=== PATIENT | male | born 1950 | race Caucasian/White ===

== ENCOUNTER → 2018-09-23 | Day surgery (SDC) | payer MEDICARE, BC ==
[~2018-09-23] MED LIST: ALLOPURINOL300 MG PO; CLONIDINE HCL0.1 MG PO; EDARBYCLOR 40-1 EACH PO; FENTANYL CITRATE/PF 100MCG/2 ML INJ ONE; MIDAZOLAM HCL 2 MG/2 ML VIAL ONE; PANTOPRAZOLE SO40 MG PO; PROPOFOL IV EMULSION 10 MG/ML 50 ML VIAL ONE; RANITIDINE HCL150 MG PO
[2018-09-23 10:05] VITALS: BP 110/84
== END | disposition home or self-care (01) ==
LOC: OR 06:36
PROVIDERS: ATTEND Internal Medicine Gastroenterology
DX: Z12.11 Encounter for screening for malignant neoplasm of colon (principal); D12.0 Benign neoplasm of cecum; D12.2 Benign neoplasm of ascending colon; D12.3 Benign neoplasm of transverse colon; D12.4 Benign neoplasm of descending colon; D12.5 Benign neoplasm of sigmoid colon; D12.8 Benign neoplasm of rectum; K31.7 Polyp of stomach and duodenum; K52.9 Noninfective gastroenteritis and colitis, unspecified; K29.70 Gastritis, unspecified, without bleeding; K22.70 Barrett's esophagus without dysplasia; K44.9 Diaphragmatic hernia without obstruction or gangrene; K31.89 Other diseases of stomach and duodenum; K21.9 Gastro-esophageal reflux disease without esophagitis; K20.9 Esophagitis, unspecified; K57.30 Diverticulosis of large intestine without perforation or abscess without bleeding; K64.0 First degree hemorrhoids; K64.4 Residual hemorrhoidal skin tags; K62.89 Other specified diseases of anus and rectum; Z71.3 Dietary counseling and surveillance; F45.8 Other somatoform disorders; R05 Cough; E66.3 Overweight; I10 Essential (primary) hypertension; Z68.27 Body mass index [BMI] 27.0-27.9, adult; Z85.46 Personal history of malignant neoplasm of prostate; Z90.49 Acquired absence of other specified parts of digestive tract
CPT/HCPCS: 43239; 45380; 45385; 88305; 88312; 88342; 93005; J2250; J2704; 45384

== ENCOUNTER 2018-10-16 07:33 | Observation (INO) | payer MEDICARE, BC ==
[~2018-10-16] VITALS: Ht 175.3 cm; Wt 86.4 kg
[~2018-10-16 07:33] MED LIST changes: -FENTANYL CITRATE/PF 100MCG/2 ML INJ ONE; -MIDAZOLAM HCL 2 MG/2 ML VIAL ONE; -PROPOFOL IV EMULSION 10 MG/ML 50 ML VIAL ONE
[2018-10-16 09:25] LABS: BASOPHILS # (AUTO) 0.1 (0.0-0.1); BASOPHILS % 0.5 % (0.0-1.0); EOSINOPHILS # (AUTO) 0.1 (0.0-0.4); EOSINOPHILS % 0.6 % (0.0-6.0); HEMATOCRIT 44.3 % (38.2-49.6); HEMOGLOBIN 14.6 g/dL (14.0-18.0); LYMPHOCYTES # (AUTO) 2.3 (1.0-3.2); LYMPHOCYTES % 16.6 % (18.0-39.1); MEAN CORPUSCULAR HEMOGLOBIN 32.7 pg (28-32); MEAN CORPUSCULAR VOLUME 99.1 fL (81-99); MONOCYTES # (AUTO) 1.7 (0.2-0.8); MONOCYTES % 12.8 % (4.4-11.3); NEUTROPHILS # (AUTO) 9.3 (2.1-6.9); NEUTROPHILS % 68.8 % (38.7-80.0); PLATELET COUNT 207 x10e3/uL (140-360); RED BLOOD COUNT 4.47 x10e6/uL (4.3-5.7); RED CELL DISTRIBUTION WIDTH 13.3 % (11.7-14.4)
[2018-10-16 09:32] LABS: INR 0.95; PROTHROMBIN TIME 13.2 seconds (11.9-14.5)
[2018-10-16 09:33] LABS: PARTIAL THROMBOPLASTIN TIME 30.3 seconds (23.8-35.5)
[2018-10-16 09:41] LABS: ANION GAP 13.9 mmol/L (8-16); CALCIUM 10.6 mg/dL (8.4-10.2); CREATININE, SERUM 1.26 mg/dL (0.72-1.25); POTASSIUM 3.9 mmol/L (3.5-5.1)
[2018-10-16] MEDS ORDERED: LORAZEPAM 1 MG TAB PO NR (10:30)
[2018-10-16] MEDS ORDERED: LORAZEPAM 0.5 MG TAB PO PRN (12:00)
[2018-10-16] MEDS ORDERED: ONDANSETRON HCL INJ 2MG/ML 2ML 2 MG/ML VIAL IV PRN (12:00)
[2018-10-16] MEDS ORDERED: MORPHINE SULFATE 2 MG/ML SYR 1ML IV PRN (12:00)
[2018-10-16] MEDS ORDERED: LORAZEPAM 1 MG TAB PO PRN (12:15)
[2018-10-16] MEDS: SODIUM CHLORIDE 0.9% 1000ML 1,000 ML IV SCH (12:40)
[2018-10-16] MEDS: MORPHINE SULFATE INJ 4 MG/ML INJ 1ML IV PRN ×2 (12:40→16:55)
[2018-10-16] MEDS: ENOXAPARIN SODIUM INJ 100 MG/ML SYR SC SCH (12:40)
[2018-10-16 16:48] VITALS: BP 116/78
[2018-10-16 17:30] VITALS: BP 116/78
--- NOTE | 2018-10-16 19:17 | NUR ---
Got report from previous nurse. CALL LIGHT WITHIN REACH. PATIENT IN BED
[2018-10-16 20:56] VITALS: BP 120/66
[2018-10-17] VITALS (8 sets, daily range): BP systolic 111–143; BP diastolic 65–86
[2018-10-17] MEDS: ENOXAPARIN SODIUM INJ 100 MG/ML SYR SC SCH (00:45)
[2018-10-17] MEDS: SODIUM CHLORIDE 0.9% 1000ML 1,000 ML IV SCH ×4 (00:49→23:15)
[2018-10-17 05:33] LABS: BASOPHILS # (AUTO) 0.1 (0.0-0.1); BASOPHILS % 0.4 % (0.0-1.0); EOSINOPHILS % 0.2 % (0.0-6.0); HEMOGLOBIN 14.4 g/dL (14.0-18.0); LYMPHOCYTES # (AUTO) 2.3 (1.0-3.2); LYMPHOCYTES % 14.3 % (18.0-39.1); MEAN CORPUSCULAR HEMOGLOBIN 33.1 pg (28-32); MEAN CORPUSCULAR HGB CONC 33.5 g/dL (31-35); MEAN CORPUSCULAR VOLUME 98.9 fL (81-99); MONOCYTES # (AUTO) 2.1 (0.2-0.8); NEUTROPHILS # (AUTO) 11.4 (2.1-6.9); NEUTROPHILS % 71.2 % (38.7-80.0); PLATELET COUNT 202 x10e3/uL (140-360); RED BLOOD COUNT 4.35 x10e6/uL (4.3-5.7); RED CELL DISTRIBUTION WIDTH 13.3 % (11.7-14.4)
[2018-10-17 05:56] LABS: ANION GAP 15.2 mmol/L (8-16); CALCIUM 10.1 mg/dL (8.4-10.2); CREATININE, SERUM 1.21 mg/dL (0.72-1.25); POTASSIUM 4.2 mmol/L (3.5-5.1)
--- NOTE | 2018-10-17 07:43 | NUR ---
Gave report to oncoming nurse. call light within reach. patient in bed.
--- NOTE | 2018-10-17 08:26 | Diagnostic Imaging Report ---
EXAM: CT Abdomen and Pelvis WITH contrast INDICATION: ^DVT ELEVATED WBC RULE OUT AND MALIGNANCY CAN USE ORAL CONTR COMPARISON: None. TECHNIQUE: Abdomen and pelvis were scanned utilizing a multidetector helical scanner from the lung base to the pubic symphysis after administration of IV contrast. Coronal and sagittal reformations were obtained. Routine protocol was performed. Scan was performed when during portal venous phase. IV CONTRAST: 100 mL of Isovue 370 ORAL CONTRAST: Water COMPLICATIONS: None RADIATION DOSE: Total DLP: 621.87 mGy*cm Estimated effective dose: (DLP x 0.015 x size factor) mSv CTDIvol has been reviewed. It is below the limits set by the Radiation Protocol Committee (RPC). Dose modulation, iterative reconstruction, and/or weight based adjustment of the mA/kV was utilized to reduce the radiation dose to as low as reasonably achievable. FINDINGS: LINES and TUBES: None. LOWER THORAX: Unremarkable HEPATOBILIARY: The liver is diffuse hypodense compared to the spleen, consistent with diffuse hepatic diffuse hepatic steatosis. No focal hepatic lesions. No biliary ductal dilation. GALLBLADDER: There are cholecystectomy clips. SPLEEN: No splenomegaly. PANCREAS: No focal masses or ductal dilatation. ADRENALS: No adrenal nodules KIDNEYS/URETERS: Kidneys enhance symmetrically. No hydronephrosis. 3.0 cm cyst in inferior pole of the left kidney. No stones. GI TRACT: No abnormal distention, wall thickening, or evidence of bowel obstruction. There are diverticula within the colon without evidence of diverticulitis. Appendix is normal. PELVIC ORGANS/BLADDER: Prostate is not visualized. Pelvic floor prolapse. LYMPH NODES: No lymphadenopathy. Small rona hepatis lymph nodes. VESSELS: There is moderate atherosclerotic disease in the aorta and major arterial branches. PERITONEUM / RETROPERITONEUM: No free air or fluid. BONES: There are degenerative changes in the lumbar spine. Moderate disc space narrowing at L5-S1. Calcification of the left hip joint capsule. SOFT TISSUES: Subtle fat stranding the left groin in the approximate area of the left femoral artery and near the origin of the deep femoral artery. IMPRESSION: 1. Diffuse hepatic steatosis. 2. Pelvic floor prolapse with prostate absent. 3. No acute abnormalities in the abdomen or pelvis. 4. Subtle inflammatory changes in the left groin/proximal left femur with mild inflammatory changes around the left femoral artery and deep femoral artery. Correlate for left lower extremity infection. Signed by: Dr. Christopher Sutherland M.D. on 10/17/2018 8:23 AM
[2018-10-17] MEDS: CLONIDINE HCL 0.2 MG TAB PO SCH (10:53)
[2018-10-17] MEDS: ALLOPURINOL 300 MG TAB PO SCH (10:53)
[2018-10-17] MEDS: PANTOPRAZOLE SOD 40 MG TABEC PO SCH (10:53)
[2018-10-17] MEDS: APIXABAN 5 MG TABLET PO SCH ×2 (10:53→18:04)
[2018-10-17] MEDS ORDERED: SODIUM CHLORIDE 0.9% 50ML 50 ML ONE (17:18)
[2018-10-17] MEDS ORDERED: IOPAMIDOL 370 MG/ML 200 ML INFUS..BTL INJ ONE (17:18)
--- NOTE | 2018-10-17 19:05 | NUR ---
Got report from previous nurse. Call light within reach. Patient in bed.
[2018-10-18] VITALS (8 sets, daily range): BP systolic 102–123; BP diastolic 63–83
--- NOTE | 2018-10-18 07:15 | NUR ---
Gave report to oncoming nurse. Call light within reach. Patient in bed.
[2018-10-18] MEDS: PANTOPRAZOLE SOD 40 MG TABEC PO SCH (11:31)
[2018-10-18] MEDS: CLONIDINE HCL 0.2 MG TAB PO SCH (11:31)
[2018-10-18] MEDS: APIXABAN 5 MG TABLET PO SCH ×3 (11:31→17:33)
[2018-10-18] MEDS: ALLOPURINOL 300 MG TAB PO SCH (11:31)
[2018-10-18] MEDS: SODIUM CHLORIDE 0.9% 1000ML 1,000 ML IV SCH ×2 (14:16→23:00)
[2018-10-18] MEDS ORDERED: ONDANSETRON HCL 4 MG ORAL DISINTEGRATING TAB PO PRN (15:00)
--- NOTE | 2018-10-18 18:56 | NUR ---
Got report from previous nurse. Call light within reach. Patient in bed.
[2018-10-19] VITALS: BP 105/67
[2018-10-19 04:23] VITALS: BP 115/66
--- NOTE | 2018-10-19 07:06 | NUR ---
Patient in bed asleep. Call light within reach. Gave report to oncoming nurse.
--- NOTE | 2018-10-19 07:36 | Discharge Summary ---
DISCHARGE DIAGNOSIS: Left lower extremity DVT. HISTORY OF PRESENT ILLNESS: The patient is a gentleman, who presented with acute onset of left lower extremity pain in the morning of admission. We brought him to the emergency room, which does have left lower extremity DVT. He was brought and placed on initially Lovenox and Eliquis, which he tolerated very well. He had CT scan of his abdomen and pelvis just to rule out any occult malignancy, which was negative other than fatty liver, which I discussed with the patient. He had no complications with medication had his fill the medication prior to discharge, which he was able to obtain. He will be discharged home on Eliquis and follow up with me in two weeks. Please see hospital chart for full details. MD TOMER Drake/CARLOS /[id number]
[2018-10-19 07:42] VITALS: BP 115/75
[2018-10-19] MEDS: APIXABAN 5 MG TABLET PO SCH (07:42)
[2018-10-19] MEDS: PANTOPRAZOLE SOD 40 MG TABEC PO SCH (07:42)
[2018-10-19] MEDS: CLONIDINE HCL 0.2 MG TAB PO SCH (07:42)
[2018-10-19] MEDS: ALLOPURINOL 300 MG TAB PO SCH (07:42)
[2018-10-19 07:53] VITALS: BP 115/75
--- NOTE | 2018-10-19 08:15 | NUR ---
PIV removed with tip intact, no active bleeding noted, dressing in place. explained d/c instructions to patient and . all personal belongings, and d/c instructions in hand at time of discharge. patient reports provided RX for Eliquis and states " has it." teaching provided on side effects of eliquis and stressed if uncontrolled bleeding occurs to apply pressure and visit ER. escorted to front lobby door where picked up in private auto.
== END 2018-10-19 08:15 | disposition home or self-care (01) ==
LOC: ER 07:33 → ERHOLD 11:54 → IMCU 16:25
PROVIDERS: ADMIT Internal Medicine; ATTEND Internal Medicine
DX: I82.412 Acute embolism and thrombosis of left femoral vein (principal); I82.432 Acute embolism and thrombosis of left popliteal vein; I82.442 Acute embolism and thrombosis of left tibial vein; Z85.46 Personal history of malignant neoplasm of prostate; K21.9 Gastro-esophageal reflux disease without esophagitis; I12.9 Hypertensive chronic kidney disease with stage 1 through stage 4 chronic kidney disease, or unspecified chronic kidney disease; N18.3 Chronic kidney disease, stage 3 (moderate); M10.9 Gout, unspecified; Z82.49 Family history of ischemic heart disease and other diseases of the circulatory system; K76.0 Fatty (change of) liver, not elsewhere classified; D72.829 Elevated white blood cell count, unspecified
CPT/HCPCS: 36415 ×2; 74177; 80048 ×2; 85025 ×2; 85379; 85610; 85730; 93005; 93971; 99284; G0378 ×4; J1650 ×2; J2270; J2405; J7030 ×3; Q9967; S0164 ×3

== ENCOUNTER 2018-10-25 17:44 | Inpatient (IN) | payer MEDICARE, BC ==
[~2018-10-25] VITALS: Ht 175.3 cm; Wt 108.9 kg
--- OUTSIDE RECORDS SUMMARY | 2018-10-25 17:47 | XMS REPORT ---
[facility] Address Unknown Phone Unavailable Care Team Providers Care Pharmaceutical Detailer Name Role Phone JULIAN CRUZ Unavailable Unavailable Problems This patient has no known problems. Allergies, Adverse Reactions, Alerts This patient has no known allergies or adverse reactions. Medications This patient has no known medications. Results Test Description Test Time Test Comments Text Results Atomic Results Result Comments CT ABDOMEN/PELVIS W 2018-10-17 08:12:00 [place] [address] Patient Name: RASHID WATERMAN JR MR #: [id number] : 1950 Age/Sex: 67/M Req #: [id number] [facility] Physician: JULIAN CRUZ MD Ordered by: JULIAN CRUZ MD Report #: [id number] Location: [facility] Room/Bed: [place] [address] Procedure: [id number] CT/CT ABDOMEN/PELVIS W Exam Date: 10/17/18 Exam Time: 0800 REPORT STATUS: Signed EXAM: CT Abdomen and Pelvis WITH contrast INDICATI ON: DVT ELEVATED WBC RULE OUT AND MALIGNANCY CAN USE ORAL CONTR COMPARISON: None. TECHNIQUE: Abdomen and pelvis were scanned utilizing a multidetector helical scanner from the lung base to the pubic symphysis after administration of IV contrast. Coronal and sagittal reformations were obtained. Routine protocol was performed. Scan was performed when during portal venous phase. IV CONTRAST: 100 mL of Isovue 370 ORAL CONTRAST: Water COMPLICATIONS: None RADIATION DOSE: Total DLP: 621.87 mGy*cm Estimated effective dose: (DLP x 0.015 x size factor) mSv CTDIvol has been reviewed. It is below the limits set by the Radiation Protocol Committee (RPC). Dose modulation, iterative reconstruction, and/or weight based adjustment of the mA/kV was utilized to reduce the radiation dose to as low as reasonably achievable. FINDINGS: LINES and TUBES: None. LOWER THORAX: Unremarkable HEPATOBILIARY: The liver is diffuse hypodense compared to the spleen, consistent with diffuse hepatic diffuse hepatic steatosis. No focal hepatic lesions. No biliary ductal dilation. GALLBLADDER: There are cholecystectomy clips. SPLEEN: No splenomegaly. PANCREAS: No focal masses or ductal dilatation. ADRENALS: No adrenal nodules KIDNEYS/URETERS: Kidneys enhance symmetrically. No hydronephrosis. 3.0 cm cyst in inferior pole of the left kidney. No stones. GI TRACT: No abnormal distention, wall thickening, or evidence of bowel obstruction. There are diverticula within the colon without evidence of diverticulitis. Appendix is normal. PELVIC ORGANS/BLADDER: Prostate is not visualized. Pelvic floor prolapse. LYMPH NODES: No lymphadenopathy. Small rona hepatis lymph nodes. VESSELS: There is moderate atherosclerotic disease in the aorta and major arterial branches. PERITONEUM / RETROPERITONEUM: No free air or fluid. BONES: There are degenerative changes in the lumbar spine. Moderate disc space narrowing at L5- S1. Calcification of the left hip joint capsule. SOFT TISSUES: Subtle fat stranding the left groin in the approximate area of the left femoral artery and near the origin of the deep femoral artery. IMPRESSION: 1. Diffuse hepatic steatosis. 2. Pelvic floor prolapse with prostate absent. 3. No acute abnormalities in the abdomen or pelvis. 4. Subtle inflammatory changes in the left groin/proximal left femur with mild inflammatory changes around the left femoral artery and deep femoral artery. Correlate for left lower extremity infection. Signed by: Dr. Benita Sutherland M.D. on 10/17/2018 8:23 AM Dictated By: BENITA SUTHERLAND MD 2 Transcribed By: MACIE on 10/17/18822 COPY TO: JULIAN CRUZ MD
[2018-10-25] MEDS ORDERED: SODIUM CHLORIDE 0.9% 1000ML 1,000 ML IV STA (18:05)
[2018-10-25 18:34] LABS: BASOPHILS # (AUTO) 0.1 (0.0-0.1); BASOPHILS % 0.6 % (0.0-1.0); EOSINOPHILS % 0.2 % (0.0-6.0); HEMOGLOBIN 13.4 g/dL (14.0-18.0); LYMPHOCYTES # (AUTO) 1.9 (1.0-3.2); LYMPHOCYTES % 17.4 % (18.0-39.1); MEAN CORPUSCULAR HEMOGLOBIN 32.6 pg (28-32); MEAN CORPUSCULAR HGB CONC 34.4 g/dL (31-35); MEAN CORPUSCULAR VOLUME 94.9 fL (81-99); NEUTROPHILS # (AUTO) 7.8 (2.1-6.9); NEUTROPHILS % 72.2 % (38.7-80.0); PLATELET COUNT 396 x10e3/uL (140-360); RED BLOOD COUNT 4.11 x10e6/uL (4.3-5.7); RED CELL DISTRIBUTION WIDTH 12.8 % (11.7-14.4)
[2018-10-25] MEDS ORDERED: ELIQUIS PO (18:42)
[2018-10-25] MEDS ORDERED: CELEXA20 MG PO (18:42)
[2018-10-25 18:49] LABS: INR 1.38; PROTHROMBIN TIME 17.6 seconds (11.9-14.5)
[2018-10-25 18:50] LABS: PARTIAL THROMBOPLASTIN TIME 40.4 seconds (23.8-35.5)
[2018-10-25 18:56] LABS: ALANINE AMINOTRANSFERASE 18 IU/L (0-55); ALBUMIN 3.6 g/dL (3.5-5.0); ALBUMIN/GLOBULIN RATIO 0.8 (0.8-2.0); ALKALINE PHOSPHATASE 104 IU/L (40-150); ANION GAP 14.2 mmol/L (8-16); BLOOD UREA NITROGEN 13 mg/dL (7-26); BUN/CREATININE RATIO 13 (6-25); CALCIUM 10.3 mg/dL (8.4-10.2); CARBON DIOXIDE 25 mmol/L (22-29); CHLORIDE 96 mmol/L (98-107); CREATINE KINASE 52 IU/L (30-200); CREATININE, SERUM 0.99 mg/dL (0.72-1.25); EST GLOMERULAR FILTRATION RATE > 60 ML/MIN (60-); GLUCOSE 154 mg/dL (74-118); MAGNESIUM 1.8 MG/DL (1.3-2.1); POTASSIUM 3.2 mmol/L (3.5-5.1); SODIUM 132 mmol/L (136-145)
--- NOTE | 2018-10-25 19:02 | Diagnostic Imaging Report ---
Exam: Head CT without contrast History: Altered mental status Comparison studies: None Technique: Axial images were obtained from the skull base to the vertex. Coronal and sagittal images reconstructed from the axial data. Dose modulation, iterative reconstruction, and/or weight based adjustment of the mA/kV was utilized to reduce the radiation dose to as low as reasonably achievable. Radiation dose: Total DLP: 921 mGy*cm. Estimated effective dose: DLP x 0.015 Intravenous contrast: None Findings: Scalp: No abnormalities. Bones: No fractures, blastic or lytic lesions. Brain sulci: Mildly prominent. Ventricles: Normal in size and configuration. No hydrocephalus. Extra-axial spaces: No masses, no fluid collection. Parenchyma: No mass, acute hemorrhage or acute or chronic cortical insults. Scattered ill-defined and mildly thickened hypodensities in the supratentorial white matter are nonspecific but most compatible with chronic microvascular ischemic changes. Sellar/suprasellar region: No abnormalities. Craniocervical junction: Patent foramen magnum. No Chiari one malformation. Incidental findings: Atherosclerotic calcifications in the carotid siphons and in the right intradural vertebral artery. IMPRESSION: No acute intracranial abnormalities. Chronic findings: 1. Mild generalized cerebral volume loss. 2. Mild to moderate microvascular ischemic changes. Signed by: Dr. Keith Yepez M.D. on 10/25/2018 6:59 PM
[2018-10-25 19:16] LABS: THYROID STIMULATING HORMONE 2.011 uIU/mL (0.350-4.940)
--- NOTE | 2018-10-25 19:31 | Diagnostic Imaging Report ---
EXAMINATION: CHEST 2 VIEWS INDICATION: ^AMS, COUGH ^[id number] ^1848 COMPARISON: CT abdomen and pelvis 10/17/2018 FINDINGS: PA and lateral views TUBES and LINES: None. LUNGS: Lungs are well inflated. Left lower lobe consolidation. No pulmonary edema. Bilateral hilar peribronchial wall thickening. PLEURA: No pleural effusion or pneumothorax. HEART AND MEDIASTINUM: The cardiac silhouette is mildly prominent. Tortuous thoracic aorta with suspected ectasia of the aortic arch. BONES AND SOFT TISSUES: No acute osseous lesion. Soft tissues are unremarkable. UPPER ABDOMEN: No free air under the diaphragm. IMPRESSION: Left lower lobe pneumonia, new when compared to 10/17/2018. Signed by: Dr. Lizz Montes De Oca M.D. on 10/25/2018 7:28 PM
[2018-10-25] MEDS ORDERED: CEFEPIME HCL 1 GM VIAL IV SCH (19:45)
[2018-10-25] MEDS: CEFEPIME 1GM/NS 0.9% 50 ML 50 ML IV SCH (20:11)
[2018-10-25] MEDS: VANCOMYCIN 1GM/NS 250 ML 250 ML IV SCH (20:12)
[2018-10-25] MEDS ORDERED: ALBUTEROL SULF 0.083% NEB SOLN 3 ML NEB NEB SCH (20:30)
[2018-10-25] MEDS ORDERED: IPRATROPIUM BROMIDE 0.02% 2.5 ML NEB NEB SCH (20:30)
[2018-10-25 20:34] LABS: BILIRUBIN,URINE NEGATIVE (NEGATIVE); CLARITY,URINE CLEAR (CLEAR); COLOR,URINE YELLOW (YELLOW); KETONES,URINE NEGATIVE (NEGATIVE); LEUKOCYTE ESTERASE ,URINE NEGATIVE (NEGATIVE); NITRITE,URINE NEGATIVE (NEGATIVE); PROTEIN,URINE DIPSTICK NEGATIVE (NEGATIVE); URINE UROBILINOGEN 0.2 mg/dL (0.2 - 1)
[2018-10-25 20:45] LABS: BACTERIA,URINE RARE /HPF; EPITHELIAL CELLS,URINE RARE /LPF; RBC,URINE 0-5 /HPF (0-5); WBC,URINE (MAN) 0-5 /HPF (0-5)
[2018-10-25 20:46] LABS: MUCUS,URINE MODERATE (RARE)
[2018-10-25] MEDS: SODIUM CHLORIDE 0.9% 1000ML 1,000 ML IV SCH (21:54)
[2018-10-25 23:12] VITALS: BP 148/82
[2018-10-26] VITALS (9 sets, daily range): BP systolic 130–202; BP diastolic 49–97
[2018-10-26 03:11] LABS: CREATINE KINASE MB 1.2 ng/mL (0-5.0)
[2018-10-26] MEDS ORDERED: POTASSIUM CHLORIDE 20 MEQ TAB CR PO ONE (04:45)
[2018-10-26] MEDS: ONDANSETRON HCL INJ 2MG/ML 2ML 2 MG/ML VIAL IV PRN ×2 (05:00→09:06)
[2018-10-26] MEDS: SODIUM CHLORIDE 0.9% 1000ML 1,000 ML IV SCH ×2 (06:20→11:54)
[2018-10-26] MEDS: VANCOMYCIN 1GM/NS 250 ML 250 ML IV SCH ×2 (08:54→21:04)
[2018-10-26] MEDS: APIXABAN 5 MG TABLET PO SCH ×2 (08:59→17:05)
[2018-10-26] MEDS: ALLOPURINOL 300 MG TAB PO SCH (08:59)
[2018-10-26] MEDS: PANTOPRAZOLE SOD 40 MG TABEC PO SCH (08:59)
[2018-10-26] MEDS: CLONIDINE HCL 0.1 MG TAB PO SCH (08:59)
[2018-10-26] MEDS ORDERED: CITALOPRAM HYDROBROMIDE 20 MG TAB PO SCH (09:00)
[2018-10-26] MEDS: CITALOPRAM HYDROBROMIDE 20 MG TAB PO SCH (21:04)
[2018-10-26] MEDS: CEFEPIME 1GM/NS 0.9% 50 ML 50 ML IV SCH ×2 (21:04→21:20)
[2018-10-27] VITALS (7 sets, daily range): BP systolic 125–167; BP diastolic 69–93
[2018-10-27] MEDS: SODIUM CHLORIDE 0.9% 1000ML 1,000 ML IV SCH ×3 (00:22→14:45)
[2018-10-27 05:34] LABS: BASOPHILS # (AUTO) 0.1 (0.0-0.1); BASOPHILS % 0.5 % (0.0-1.0); EOSINOPHILS # (AUTO) 0.1 (0.0-0.4); EOSINOPHILS % 1.1 % (0.0-6.0); HEMATOCRIT 36.4 % (38.2-49.6); HEMOGLOBIN 12.1 g/dL (14.0-18.0); LYMPHOCYTES # (AUTO) 1.7 (1.0-3.2); LYMPHOCYTES % 17.7 % (18.0-39.1); MEAN CORPUSCULAR HEMOGLOBIN 32.5 pg (28-32); MEAN CORPUSCULAR HGB CONC 33.2 g/dL (31-35); MEAN CORPUSCULAR VOLUME 97.8 fL (81-99); MONOCYTES # (AUTO) 0.9 (0.2-0.8); MONOCYTES % 9.2 % (4.4-11.3); NEUTROPHILS # (AUTO) 6.7 (2.1-6.9); PLATELET COUNT 345 x10e3/uL (140-360); RED BLOOD COUNT 3.72 x10e6/uL (4.3-5.7); RED CELL DISTRIBUTION WIDTH 12.9 % (11.7-14.4)
[2018-10-27 06:03] LABS: ALANINE AMINOTRANSFERASE 14 IU/L (0-55); ALBUMIN 3.1 g/dL (3.5-5.0); ALBUMIN/GLOBULIN RATIO 0.8 (0.8-2.0); ALKALINE PHOSPHATASE 86 IU/L (40-150); ANION GAP 10.8 mmol/L (8-16); BLOOD UREA NITROGEN 8 mg/dL (7-26); BUN/CREATININE RATIO 9 (6-25); CALCIUM 9.8 mg/dL (8.4-10.2); CARBON DIOXIDE 26 mmol/L (22-29); CHLORIDE 103 mmol/L (98-107); CREATININE, SERUM 0.93 mg/dL (0.72-1.25); EST GLOMERULAR FILTRATION RATE > 60 ML/MIN (60-); GLUCOSE 109 mg/dL (74-118); POTASSIUM 3.8 mmol/L (3.5-5.1); SODIUM 136 mmol/L (136-145)
[2018-10-27] MEDS: VANCOMYCIN 1GM/NS 250 ML 250 ML IV SCH ×2 (07:45→19:45)
[2018-10-27] MEDS: PANTOPRAZOLE SOD 40 MG TABEC PO SCH (08:56)
[2018-10-27] MEDS: APIXABAN 5 MG TABLET PO SCH ×2 (08:56→17:06)
[2018-10-27] MEDS: ALLOPURINOL 300 MG TAB PO SCH (08:56)
[2018-10-27] MEDS: CLONIDINE HCL 0.1 MG TAB PO SCH (09:05)
[2018-10-27] MEDS: ACETAMINOPHEN 325 MG TAB PO PRN (09:49)
--- NOTE | 2018-10-27 10:53 | Diagnostic Imaging Report ---
EXAM: Modified barium swallow with Speech Pathologist INDICATION: ^suspected aspiration ^[id number] ^0900 COMPARISON: None available. RADIATION DOSE: Fluoroscopy Time: 1.2 min Dose (Kerma) Area Product: 0.57 Gycm2 Air Kerma (AK) value has been reviewed. It is below the limits set by the Radiation Protocol Committee (RPC) committee. FINDINGS: See impression IMPRESSION: No evidence of penetration or aspiration. Please see speech pathology report for detailed description and recommendations. Signed by: Dr. Keith Harrington M.D. on 10/27/2018 10:50 AM
[2018-10-27] MEDS: CEFEPIME 1GM/NS 0.9% 50 ML 50 ML IV SCH (21:31)
[2018-10-27] MEDS: CITALOPRAM HYDROBROMIDE 20 MG TAB PO SCH (21:31)
[2018-10-28] VITALS (8 sets, daily range): BP systolic 129–183; BP diastolic 76–95
[2018-10-28] MEDS: HYDRALAZINE HCL 20 MG/ML VIAL IV PRN (01:56)
[2018-10-28] MEDS: ONDANSETRON HCL INJ 2MG/ML 2ML 2 MG/ML VIAL IV PRN (07:16)
[2018-10-28] MEDS: ACETAMINOPHEN 325 MG TAB PO PRN (07:16)
[2018-10-28] MEDS: SODIUM CHLORIDE 0.9% 1000ML 1,000 ML IV SCH ×2 (08:05→16:33)
[2018-10-28] MEDS: ALLOPURINOL 300 MG TAB PO SCH (08:06)
[2018-10-28] MEDS: APIXABAN 5 MG TABLET PO SCH ×2 (08:06→16:33)
[2018-10-28] MEDS: CLONIDINE HCL 0.1 MG TAB PO SCH (08:06)
[2018-10-28] MEDS: VANCOMYCIN 1GM/NS 250 ML 250 ML IV SCH ×3 (08:35→21:30)
[2018-10-28] MEDS: PANTOPRAZOLE SOD 40 MG TABEC PO SCH (09:01)
[2018-10-28] MEDS ORDERED: ONDANSETRON HCL 4 MG ORAL DISINTEGRATING TAB PO PRN (14:00)
[2018-10-28] MEDS: CITALOPRAM HYDROBROMIDE 20 MG TAB PO SCH (21:54)
[2018-10-28] MEDS: CEFEPIME 1GM/NS 0.9% 50 ML 50 ML IV SCH (22:45)
[2018-10-29 00:12] VITALS: BP 176/90
[2018-10-29] MEDS: HYDRALAZINE HCL 20 MG/ML VIAL IV PRN (00:30)
[2018-10-29 05:30] VITALS: BP 162/77
[2018-10-29 08:39] VITALS: BP 161/84
[2018-10-29] MEDS: APIXABAN 5 MG TABLET PO SCH (09:12)
[2018-10-29] MEDS: VANCOMYCIN 1GM/NS 250 ML 250 ML IV SCH (09:12)
[2018-10-29] MEDS: ALLOPURINOL 300 MG TAB PO SCH (09:12)
[2018-10-29] MEDS: PANTOPRAZOLE SOD 40 MG TABEC PO SCH (09:12)
[2018-10-29] MEDS: CLONIDINE HCL 0.1 MG TAB PO SCH (09:13)
[2018-10-29 12:00] VITALS: BP 121/69
--- NOTE | 2018-10-31 05:00 | Discharge Summary ---
DISCHARGE DIAGNOSES: 1. Aspiration pneumonia. 2. Deep venous thrombosis of the left leg. 3. Hypertension. HISTORY OF PRESENT ILLNESS AND HOSPITAL COURSE: See hospital chart for full details. The patient is a gentleman, who was recently admitted to the hospital for acute left lower extremity DVT and discharged on Eliquis, who on the day of this admission started having increasing cough, shortness of breath, low-grade fevers, also he was noticed to have evidence of an aspiration pneumonia. improved each day and at the time of discharge, the patient was feeling good and . We discharged him home on p.o. Levaquin for 10 more days to complete the course as well as continuation of his medications including anticoagulant for his DVT. Of note, the patient was having some possible evidence of aspiration, so he had a modified barium swallow done in the past. He was also seen by Neurology for some cognitive issues that he will follow up with us as an outpatient is not the best. Please see hospital chart for full details. MD TOMER Drake/CARLOS /[id number]
== END 2018-10-29 11:17 | disposition home or self-care (01) | DRG 178 ==
LOC: ER 17:44 → ERHOLD 20:28 → MED/SURG2 22:40
PROVIDERS: ADMIT Family Medicine; ATTEND Family Medicine
DX: J69.0 Pneumonitis due to inhalation of food and vomit (principal); I82.402 Acute embolism and thrombosis of unspecified deep veins of left lower extremity; E87.1 Hypo-osmolality and hyponatremia; M1A.9XX0 Chronic gout, unspecified, without tophus (tophi); I10 Essential (primary) hypertension; R13.10 Dysphagia, unspecified; M10.9 Gout, unspecified; F41.9 Anxiety disorder, unspecified; E87.6 Hypokalemia; Z90.49 Acquired absence of other specified parts of digestive tract
CPT/HCPCS: 36415; 70450; 71046; 74230; 80053; 80202; 81001; 82140; 82550; 82553; 83605; 83735; 84443; 84484; 85025; 85610; 85730; 87040; 87086; 93005; 99284; J0360; J0692; J2405; J3370; J7030

== ENCOUNTER 2019-01-03 02:03 | Emergency (ER) | payer MEDICARE, BC ==
[~2019-01-03] VITALS: Ht 175.3 cm; Wt 108.9 kg
[~2019-01-03 02:03] MED LIST changes: +CELEXA20 MG PO; +ELIQUIS PO
[2019-01-03 02:42] LABS: BASOPHILS # (AUTO) 0.1 (0.0-0.1); BASOPHILS % 0.6 % (0.0-1.0); EOSINOPHILS # (AUTO) 0.1 (0.0-0.4); EOSINOPHILS % 1.1 % (0.0-6.0); HEMATOCRIT 42.1 % (38.2-49.6); HEMOGLOBIN 13.9 g/dL (14.0-18.0); LYMPHOCYTES # (AUTO) 3.1 (1.0-3.2); LYMPHOCYTES % 31.7 % (18.0-39.1); MEAN CORPUSCULAR HEMOGLOBIN 31.4 pg (28-32); MONOCYTES % 10.3 % (4.4-11.3); NEUTROPHILS # (AUTO) 5.5 (2.1-6.9); NEUTROPHILS % 56.1 % (38.7-80.0); PLATELET COUNT 236 x10e3/uL (140-360); RED BLOOD COUNT 4.43 x10e6/uL (4.3-5.7)
[2019-01-03] MEDS ORDERED: DONNATAL/LIDOCAINE/MAALOX 30 ML SUSP PO SCH (02:45)
[2019-01-03] MEDS ORDERED: SUCRALFATE 1 GM TAB PO SCH ×2 (02:45→07:30)
[2019-01-03] MEDS ORDERED: OMEPRAZOLE 20 MG CAP PO SCH (02:45)
[2019-01-03] MEDS ORDERED: BELLADONNA ALK/PHENOBARBITAL 5 ML UDC ONE (03:01)
[2019-01-03] MEDS ORDERED: MAGNESIUM/ALUMINUM/SIMETHICONE 30 ML UDC ONE (03:01)
[2019-01-03] MEDS ORDERED: LIDOCAINE VISC 2% SOLN 15 ML UDC ONE (03:01)
[2019-01-03 03:05] LABS: ALANINE AMINOTRANSFERASE 31 IU/L (0-55); ALBUMIN/GLOBULIN RATIO 1.1 (0.8-2.0); ALKALINE PHOSPHATASE 104 IU/L (40-150); ANION GAP 15.1 mmol/L (8-16); BLOOD UREA NITROGEN 12 mg/dL (7-26); BUN/CREATININE RATIO 11 (6-25); CALCIUM 9.4 mg/dL (8.4-10.2); CARBON DIOXIDE 26 mmol/L (22-29); CHLORIDE 104 mmol/L (98-107); CREATINE KINASE 143 IU/L (30-200); CREATININE, SERUM 1.11 mg/dL (0.72-1.25); EST GLOMERULAR FILTRATION RATE > 60 ML/MIN (60-); GLUCOSE 155 mg/dL (74-118); POTASSIUM 4.1 mmol/L (3.5-5.1); SODIUM 141 mmol/L (136-145)
[2019-01-03 03:17] LABS: CREATINE KINASE MB < 1.00 ng/mL (0-4.3)
[2019-01-03] MEDS ORDERED: IOPAMIDOL 370 MG/ML 200 ML INFUS..BTL INJ ONE (03:29)
[2019-01-03] MEDS ORDERED: SODIUM CHLORIDE 0.9% 50ML 50 ML ONE (03:29)
--- NOTE | 2019-01-03 04:45 | Diagnostic Imaging Report ---
History: Feels lump in throat. Comparison studies: Modified barium swallow 10/27/2018. Technique: Axial, coronal and sagittal images from the skull base to the thoracic inlet. Coronal and sagittal images reconstructed from the axial data. Dose modulation, iterative reconstruction, and/or weight based adjustment of the mA/kV was utilized to reduce the radiation dose to as low as reasonably achievable. Intravenous contrast: 100 cc of Isovue-370. Findings: Soft tissues: No abnormalities. Upper aerodigestive tract: No mass or enhancing abnormalities. No hyperdense foreign body. The vocal cords are adducted at the time of the exam. Lymph nodes: No radiographically significant adenopathy. Vessels: Patent carotid and vertebral arteries. Nonstenotic calcified plaque in the distal right carotid bulb. Hard and soft plaque at the left carotid bulb do not result in significant stenosis. Mild calcified plaque at the right subclavian artery origin, carotid siphons and right intradural vertebral artery without significant stenosis. Patent internal jugular veins Thyroid gland: Normal in size. Incidental 8 mm 8mm hypodense right inferior thyroid lobe nodule or cyst. Possible partially calcified 8 mm nodule in the left inferior thyroid lobe. Glands (parotid and submandibular): Normal in size and symmetric. No masses. Orbits: No abnormalities. Paranasal sinuses: Clear. Temporal bones: No abnormalities. Skull base and facial bones: Intact. Cervical spine: Mild multilevel disc degeneration. Small anterior disc osteophyte complexes from C3 to C6 indent the prevertebral soft tissues. Minimal anterolisthesis of C3 on C4 with associated kyphosis and disc osteophyte complex at C3-C4 which results in mild to moderate canal stenosis. Multilevel uncovertebral facet arthrosis result in multilevel foraminal stenosis, worse/severe on the left at C3-C4. IMPRESSION: 1. No mass or acute abnormalities. 2. Degenerative changes in the cervical spine as described. 3. Mild scattered atherosclerosis. 4. Incidental subcentimeter thyroid lobe nodule(s). Signed by: Dr. Keith Yepez M.D. on 01/03/2019 4:42 AM
--- NOTE | 2019-01-03 05:42 | Diagnostic Imaging Report ---
EXAM: CT Chest WITH contrast 01/03/2019 2:34 AM INDICATION: Dysphagia. Throat mass. COMPARISON: None TECHNIQUE:Chest was scanned utilizing a multidetector helical scanner from the lung apex through the level of the adrenal glands without administration of IV contrast. Coronal and sagittal reformations were obtained. Routine protocol was performed. IV CONTRAST: 100 cc Isovue-300 RADIATION DOSE: Total DLP: 906.31 mGy*cm Estimated effective dose: (DLP x 0.014 x size factor) mSv COMPLICATIONS: None FINDINGS: LINES/ TUBES: None. LUNGS AND AIRWAYS: Punctate calcified granuloma in the right upper lobe anteriorly image 25. No consolidations. Airways are normal. PLEURA: The pleural spaces are clear. HEART AND MEDIASTINUM: 8 mm low-attenuation nodule in the right thyroid lobe. No mediastinal, hilar or axillary lymphadenopathy. The heart is normal in size.. There is no pericardial effusion. UPPER ABDOMEN: Limited non-contrast views of the upper abdomen show hepatic steatosis. Cholecystectomy clips. The adrenal glands are normal. BONES: There are degenerative changes in the thoracic spine. SOFT TISSUES: Unremarkable. IMPRESSION: 1. No acute thoracic abnormality. 2. 8 mm low-attenuation nodule in the right thyroid lobe. Recommend nonemergent outpatient ultrasound of thyroid. Signed by: Dr. Tomi Wagner M.D. on 01/03/2019 5:39 AM
[2019-01-03] MEDS ORDERED: ULTRAM50 MG PO (06:06)
[2019-01-03] MEDS ORDERED: PREDNISONE20 MG PO (06:06)
[2019-01-03 06:07] VITALS: BP 177/95
[2019-01-28] MEDS ORDERED: FLUOXETINE HCL20 M1 PO (13:54)
[2019-01-28] MEDS ORDERED: DONEPEZIL HCL5 MG PO (13:54)
== END 2019-01-03 06:18 | disposition home or self-care (01) ==
LOC: ER 02:03
DX: R09.89 Other specified symptoms and signs involving the circulatory and respiratory systems (principal); R07.0 Pain in throat; M50.31 Other cervical disc degeneration, high cervical region; M48.02 Spinal stenosis, cervical region; E04.1 Nontoxic single thyroid nodule
CPT/HCPCS: 36415; 70491; 71260; 80053; 82550; 82553; 84484; 85025; 99284; Q9967

== ENCOUNTER → 2019-01-08 | Outpatient (CLI) | payer MEDICARE, BC ==
[~2019-01-08] MED LIST changes: +DONEPEZIL HCL5 MG PO; +FLUOXETINE HCL20 M1 PO; +PREDNISONE20 MG PO; +ULTRAM50 MG PO
--- NOTE | 2019-01-08 15:17 | Diagnostic Imaging Report ---
EXAMINATION: MRI of the cervical spine without contrast HISTORY: Neck pain, difficulty swallowing, coughing, feels something is stuck in throat. COMPARISON: Neck CT 01/03/2019 TECHNIQUE: Sagittal T1, T2, STIR; axial T2, gradient echo. FINDINGS: Curvature: Normal cervical lordosis. Minimal anterolisthesis at C3-C4 is unchanged compared to prior CT. Vertebrae: No evidence of neoplasm, infection, or fracture. Foramen magnum: No mass, Chiari malformation, or basilar invagination. Spinal Cord: Normal size and signal intensity. Soft Tissues: Unremarkable. Degenerative changes: C1-C2: Unremarkable. C2-C3: Bilateral facet arthrosis. Mild left foraminal stenosis. C3-C4: Asymmetric left disc osteophyte complex formation, uncovertebral and facet arthrosis. Mild spinal canal stenosis. Mild right and severe left foraminal stenosis. C4-C5: Bilateral uncovertebral and facet arthrosis. Moderate foraminal stenoses bilaterally. C5-C6: Disc osteophyte complex formation, mild facet arthrosis. Mild foraminal narrowing mainly on the right. C6-C7: Bilateral facet arthrosis without significant stenosis. C7-T1: Unremarkable. IMPRESSION: 1. No neck mass is identified. 2. Severe degenerative foraminal stenosis on the left at C3-C4 and moderate bilaterally at C4-C5. 3. Unchanged mild anterolisthesis at C3-C4. Signed by: Dr. Jeanne Villalta M.D. on 01/08/2019 3:13 PM
== END ==
LOC: MRI 13:20
PROVIDERS: ATTEND Internal Medicine
DX: M54.2 Cervicalgia (principal)
CPT/HCPCS: 72141

== ENCOUNTER 2019-02-18 07:20 | Inpatient (IN) | payer MEDICARE, BC ==
[2019-01-28 15:10] LABS: BASOPHILS # (AUTO) 0.1 (0.0-0.1); BASOPHILS % 0.7 % (0.0-1.0); EOSINOPHILS # (AUTO) 0.2 (0.0-0.4); EOSINOPHILS % 1.7 % (0.0-6.0); HEMATOCRIT 44.5 % (38.2-49.6); LYMPHOCYTES # (AUTO) 3.1 (1.0-3.2); LYMPHOCYTES % 34.4 % (18.0-39.1); MEAN CORPUSCULAR HEMOGLOBIN 31.5 pg (28-32); MEAN CORPUSCULAR HGB CONC 33.7 g/dL (31-35); MEAN CORPUSCULAR VOLUME 93.5 fL (81-99); MONOCYTES # (AUTO) 0.9 (0.2-0.8); NEUTROPHILS # (AUTO) 4.8 (2.1-6.9); NEUTROPHILS % 52.9 % (38.7-80.0); PLATELET COUNT 223 x10e3/uL (140-360); RED BLOOD COUNT 4.76 x10e6/uL (4.3-5.7)
--- NOTE | 2019-01-28 15:19 | Diagnostic Imaging Report ---
EXAMINATION: CHEST 2 VIEWS INDICATION: Pre-operative COMPARISON: Chest CT of 04/14/2019 FINDINGS: LINES/TUBES:None LUNGS:The lungs are well-inflated. No focal consolidation or pulmonary edema. PLEURA:No pleural effusion or pneumothorax. MEDIASTINUM:The cardiomediastinal silhouette appears normal in size and shape. BONES/SOFT TISSUES:No acute osseous injury. Bony proliferative changes at the right acromioclavicular joint. ABDOMEN:No free air under the diaphragm. IMPRESSION: No focal pneumonia or pulmonary edema. Signed by: Mirian Mendez MD on 01/28/2019 3:16 PM
[2019-01-28 15:24] LABS: CALCIUM 10.5 mg/dL (8.4-10.2); CREATININE, SERUM 2.48 mg/dL (0.72-1.25)
[~2019-02-18] VITALS: Ht 175.3 cm; Wt 85.9 kg
[2019-02-18] MEDS ORDERED: BUPIVACAINE HCL 0.5% INJ 30 ML VIAL INJ ONE (09:15)
[2019-02-18] MEDS ORDERED: ACETAMINOPHEN 1000 MG/100 ML IV PRN (11:15)
[2019-02-18] MEDS ORDERED: ONDANSETRON HCL INJ 2MG/ML 2ML 2 MG/ML VIAL IV PRN (11:15)
[2019-02-18] MEDS ORDERED: MORPHINE SULFATE INJ 4 MG/ML INJ 1ML IV PRN (11:15)
[2019-02-18] MEDS ORDERED: SUGAMMADEX SODIUM 200 MG/2 ML VIAL IV ONE (11:18)
[2019-02-18] MEDS ORDERED: FENTANYL CITRATE/PF 100MCG/2 ML INJ ONE ×2 (12:12→19:09)
--- NOTE | 2019-02-18 15:15 | NUR ---
RECEIVED PATIENT FROM RECOVERY. PATIENT A/O X3, EVEN RESPIRATIONS ON 2LNC. LUNG SOUNDS CLEAR TO AUSCULTATION. BOWEL SOUNDS ACTIVE, NO EDEMA. 5 TROCAR SITES ON ABDOMEN. NO DRAINAGE. SCD'S BILATERALLY. ABDOMINAL PAIN 2/10, MORPHINE PRN. RIGHT FA 20 GAUGE IV WITH IVF @ 100 CC/HR. PATIENT NPO AT THIS TIME. ORIENTED PATIENT TO ROOM AND CALL LIGHT. BED LOW, WHEELS LOCKED, SIDE RAILS X2. CALL LIGHT IN REACH WILL CONTINUE TO MONITOR PATIENT.
[2019-02-18 16:04] VITALS: BP 128/74
[2019-02-18 16:10] VITALS: BP 128/74
[2019-02-18 16:13] VITALS: BP 128/74
[2019-02-18] MEDS: DEXTROSE 5%/0.45% SOD CHL 1,000 ML IV SCH ×2 (16:15→22:06)
--- NOTE | 2019-02-18 18:40 | Operative Report ---
DATE OF PROCEDURE: 02/18/2019 SURGEON: Keith Bustillos MD PREOPERATIVE DIAGNOSES: Gastroesophageal reflux disease, hiatal hernia. POSTOPERATIVE DIAGNOSES: Gastroesophageal reflux disease, hiatal hernia. PROCEDURES: Diagnostic laparoscopy laparoscopic repair of hiatal hernia with fundoplication. SILVER HOLLOWARE ASSEMBLER: None. ANESTHESIA: General. INDICATIONS AND FINDINGS: The patient is a 68-year-old male, who has had persistent cough, workup revealed evidence of gastroesophageal reflux disease and hiatal hernia, the cause of his persisting cough. At Surgery, the patient found a moderate-sized hiatal hernia with no other abnormalities noted. TECHNIQUE: After adequate general endotracheal anesthesia, the patient is in supine position, the abdomen was prepped and draped in sterile fashion with ChloraPrep solution. Above the umbilicus to the left of the midline, skin and subcutaneous tissue was infiltrated with 0.5% Marcaine. Transverse incision was made. Abdominal wall was elevated and Veress needle was introduced. Pneumoperitoneum was then created. A 10 mm trocar and cannula was then passed through this wound. Laparoscopic camera was introduced. Initial laparoscopy revealed liver to be normal. Stomach, there was seen at this point, appeared normal. Lower abdomen appeared normal except for a few adhesions involving omentum. A 10 mm trocar and cannula were placed right of the falciform ligament. A 5 mm trocar and cannula were placed to left the midline subxiphoid. A 10 mm trocar and cannula were placed in the left-side of anterior axillary line below the costal margin. A 10 mm trocar and cannula were placed in left side of the abdomen lateral to the umbilicus. These were all placed under direct vision. With the left lower liver elevated, the fundus of stomach was grasped, retracted inferiorly. Lesser omentum was divided with LigaSure device, exposing the esophageal hiatus. Peritoneal attachments to the right side of the hiatus were divided with LigaSure device, and entire right side of the hiatus was dissected free. The fundus system was then mobilized further by dividing the short gastric vessels and peritoneal attachments of the fundus were completely free. The left-sided of the esophageal hiatus was then dissected free, so the esophagus was completely delineated. Care was taken to not to injure the vagus nerves. The esophagus is encircled with a Ebonie drain. The esophageal hiatus was then closed posterior to the esophagus with interrupted sutures using 0 Ethibond Endo knots. Once this was done, 54-Palauan esophageal dilator was passed. The fundus of stomach was then passed posterior esophagus. A 54-Palauan esophageal dilator was then passed. A 360-degree fundoplication was then done. The fundus of the stomach from the left side of the abdomen was brought anteriorly and sutured taking from the stomach to the wall esophagus to the stomach which had been passed behind the esophagus to complete 360-degree fundoplication, this was done in over a distance of approximately 2.5 cm using 0 Ethibond Endo knots. Care was taken not to injure the vagus nerves. Once the fundoplication was completed, the esophageal dilator was removed. Hemostasis was seen to be adequate. The wound was irrigated with saline. Inspected for hemostasis, which was seen to be adequate. Instruments and cannulas were then removed. Pneumoperitoneum was evacuated. Wounds were then closed. Fascia in the larger trocar wounds were closed with 0 Vicryl. Skin to all wounds was closed with fidel. Sterile dressings applied to each wound. The patient tolerated the procedure well. Estimated blood loss was 25 mL. There were no complications. All counts were correct. The patient was taken to the recovery room in satisfactory condition. MD KIT Knight/CARLOS /[id number] cc: Devang Engel MD
[2019-02-18] MEDS ORDERED: NEOSTIGMINE 5 MG/5ML SYR ONE (18:44)
[2019-02-18] MEDS ORDERED: ACETAMINOPHEN 1000 MG/100 ML IV ONE (18:44)
[2019-02-18] MEDS ORDERED: CEFAZOLIN SOD 1 GM VIAL ONE (18:44)
[2019-02-18] MEDS ORDERED: DEXAMETHASONE SOD PHOS INJ 4 MG/ML VIAL ONE (18:44)
[2019-02-18] MEDS ORDERED: ONDANSETRON HCL INJ 2MG/ML 2ML 2 MG/ML VIAL ONE (18:44)
[2019-02-18] MEDS ORDERED: PROPOFOL IV EMULSION 10 MG/ML 20 ML VIAL ONE (18:44)
[2019-02-18] MEDS ORDERED: SEVOFLURANE INHAL SOLN 250 ML PEN BTL ONE (18:44)
[2019-02-18] MEDS ORDERED: PHENYLEPHRINE HCL 1% 10 MG/ML VIAL ONE (18:44)
[2019-02-18] MEDS ORDERED: LIDOCAINE HCL 2% LOCAL INJ 5 ML SDV VIAL INJ ONE (18:44)
[2019-02-18] MEDS ORDERED: ROCURONIUM BROMIDE 10 MG/ML 5ML VIAL ONE (18:44)
[2019-02-18] MEDS ORDERED: GLYCOPYRROLATE INJ 1MG/ 5 ML SYR ONE (18:44)
[2019-02-18 19:58] VITALS: BP 118/69
[2019-02-18 20:44] VITALS: BP 118/69
[2019-02-18] MEDS ORDERED: DONEPEZIL HCL 5 MG TAB PO SCH (21:00)
--- NOTE | 2019-02-18 21:30 | NUR ---
ordered ice chips and sips of water.
[2019-02-19 00:18] VITALS: BP 138/72
--- NOTE | 2019-02-19 01:27 | NUR ---
Assessment done.no resp.distress.no pain voiced.ambulates.voided.uses ics.5 tochar sites to abdomen dry .bed locked and in lowest position.phone and call light within reach.instructed to call fo assistance as needed.stable condition.
[2019-02-19 04:49] VITALS: BP 138/76
[2019-02-19 06:02] LABS: BASOPHILS % 0.1 % (0.0-1.0); HEMATOCRIT 39.1 % (38.2-49.6); HEMOGLOBIN 13.1 g/dL (14.0-18.0); LYMPHOCYTES # (AUTO) 1.7 (1.0-3.2); LYMPHOCYTES % 10.4 % (18.0-39.1); MEAN CORPUSCULAR HEMOGLOBIN 31.6 pg (28-32); MEAN CORPUSCULAR HGB CONC 33.5 g/dL (31-35); MEAN CORPUSCULAR VOLUME 94.2 fL (81-99); MONOCYTES # (AUTO) 1.6 (0.2-0.8); MONOCYTES % 9.7 % (4.4-11.3); NEUTROPHILS # (AUTO) 13.2 (2.1-6.9); NEUTROPHILS % 79.3 % (38.7-80.0); PLATELET COUNT 215 x10e3/uL (140-360); RED BLOOD COUNT 4.15 x10e6/uL (4.3-5.7); RED CELL DISTRIBUTION WIDTH 14.3 % (11.7-14.4)
[2019-02-19 06:36] LABS: BLOOD UREA NITROGEN 15 mg/dL (7-26); BUN/CREATININE RATIO 13 (6-25); CALCIUM 10.1 mg/dL (8.4-10.2); CARBON DIOXIDE 28 mmol/L (22-29); CHLORIDE 98 mmol/L (98-107); CREATININE, SERUM 1.18 mg/dL (0.72-1.25); EST GLOMERULAR FILTRATION RATE > 60 ML/MIN (60-); GLUCOSE 141 mg/dL (74-118); SODIUM 132 mmol/L (136-145)
--- NOTE | 2019-02-19 07:09 | NUR ---
Bedside shift report given to the oncoming Rn.stable condition.
[2019-02-19] MEDS ORDERED: PANTOPRAZOLE SOD 40 MG TABEC PO SCH (07:30)
[2019-02-19 07:42] VITALS: BP 140/73
[2019-02-19 07:47] LABS: LYMPHOCYTES % (MANUAL) 12 % (19-48); MONOCYTES % (MANUAL) 10 % (3.4-9.0); NEUTROPHILS % (MANUAL) 78 % (40-74); PLATELET ESTIMATE ADEQUATE; RBC MORPHOLOGY COMMENT NORMAL
[2019-02-19 08:59] VITALS: BP 140/73
[2019-02-19] MEDS ORDERED: ALLOPURINOL 300 MG TAB PO SCH (09:00)
[2019-02-19] MEDS ORDERED: FLUOXETINE HCL 20 MG CAP PO SCH (09:00)
[2019-02-19] MEDS: DEXTROSE 5%/0.45% SOD CHL 1,000 ML IV SCH (10:42)
[2019-02-19 11:54] VITALS: BP 145/82
[2019-02-19] MEDS ORDERED: ONDANSETRON HCL 4 MG ORAL DISINTEGRATING TAB PO PRN (12:15)
--- NOTE | 2019-02-19 12:25 | Consultation ---
DATE OF CONSULTATION: REASON FOR CONSULTATION: Postop medical management. HISTORY OF PRESENT ILLNESS: The patient is a gentleman, well known to me with history of anxiety, cognitive impairment, hypertension, chronic kidney disease stage 3, and history of DVT. He is now status post hiatal hernia repair, doing well postoperatively with minimal pain. REVIEW OF SYSTEMS: Negative for chest pain, fever, chills, nausea, vomiting, headache, shortness of breath, or dizziness. PAST MEDICAL HISTORY: Anxiety, cognitive impairment, hypertension, chronic kidney disease stage 3, and history of DVT. MEDICATIONS: See MAR. SOCIAL HISTORY: Lives at home with his . Nonsmoker. Nondrinker. ALLERGIES: SEE MAR. FAMILY HISTORY: Hypertension. PHYSICAL EXAMINATION: VITAL SIGNS: Temperature 98.6, pulse 82, blood pressure 132/70, saturations 98% on room air. GENERAL: In no apparent distress, lying in bed. NECK: Supple. No JVD. CARDIOVASCULAR: Regular rate and rhythm. LUNGS: Clear to auscultation bilaterally. ABDOMEN: Soft. Decreased bowel sounds, but nondistended, nontender. No peritoneal signs. EXTREMITIES: No clubbing or cyanosis. NEUROLOGIC: Nonfocal. ASSESSMENT/PLAN: 1. Hypertension. We will continue to monitor. 2. Chronic kidney disease, stage 3. We will also continue to monitor. 3. History of deep vein thrombosis. We will continue with sequential compression devices. 4. History of cognitive impairment. We will restart his medication when he is p.o. 5. Anxiety. We will restart his medication. Please see also chart for full details. MD TOMER Drake/CARLOS /[id number]
[2019-02-19] MEDS ORDERED: TYLENOL WITH C1 EACH PO (14:36)
== END 2019-02-19 15:18 | disposition home or self-care (01) | DRG 328 ==
LOC: OR 07:20 → PACU V 11:27 → MED/SURG 15:18
PROVIDERS: ADMIT Surgery; ATTEND Surgery
PROC: 0BQT4ZZ Repair Diaphragm, Percutaneous Endoscopic Approach (ICD-10-PCS; 2019-02-18)
PROC: 0DV44ZZ Restriction of Esophagogastric Junction, Percutaneous Endoscopic Approach (ICD-10-PCS; principal; 2019-02-18 09:30)
DX: K21.9 Gastro-esophageal reflux disease without esophagitis (principal); K44.9 Diaphragmatic hernia without obstruction or gangrene
CPT/HCPCS: 36415; 71046; 80048; 85025; 93005; J0690; J1100; J2001; J2370; J2405; J3010

== ENCOUNTER 2019-04-09 10:03 | Inpatient (IN) | payer MEDICARE, BC ==
[~2019-04-09] VITALS: Ht 172.7 cm; Wt 81.2 kg
[~2019-04-09 10:03] MED LIST changes: +TYLENOL WITH C1 EACH PO
--- NOTE | 2019-04-09 10:45 | NUR ---
ARGUING WITH SPOUSE AND CURSING AT HIM. PT AND SOMEWHAT DISGRUNTALED WITH EACH OTHER.
[2019-04-09 10:50] LABS: BASOPHILS # (AUTO) 0.1 (0.0-0.1); BASOPHILS % 0.6 % (0.0-1.0); EOSINOPHILS # (AUTO) 0.1 (0.0-0.4); EOSINOPHILS % 0.6 % (0.0-6.0); HEMATOCRIT 44.5 % (38.2-49.6); HEMOGLOBIN 15.2 g/dL (14.0-18.0); LYMPHOCYTES # (AUTO) 4.3 (1.0-3.2); MEAN CORPUSCULAR HEMOGLOBIN 32.8 pg (28-32); MEAN CORPUSCULAR HGB CONC 34.2 g/dL (31-35); MEAN CORPUSCULAR VOLUME 96.1 fL (81-99); MONOCYTES # (AUTO) 1.4 (0.2-0.8); NEUTROPHILS # (AUTO) 8.4 (2.1-6.9); NEUTROPHILS % 58.2 % (38.7-80.0); PLATELET COUNT 287 x10e3/uL (140-360); RED BLOOD COUNT 4.63 x10e6/uL (4.3-5.7); RED CELL DISTRIBUTION WIDTH 14.2 % (11.7-14.4)
--- NOTE | 2019-04-09 10:50 | NUR ---
PT WALKED TO ROOM AND CHANGED TO GOWN AND GIVEN MULTIPLE WARM BLANKETS, RAILS UP X 2, BED LOW AND LOCKED, CALL HASSAN TIED TO RAIL, PT PLACED ON FULL MONITORS IN ST. PT
[2019-04-09 11:01] LABS: INR 1.07; PROTHROMBIN TIME 14.4 seconds (11.9-14.5)
[2019-04-09 11:02] LABS: PARTIAL THROMBOPLASTIN TIME 33.7 seconds (23.8-35.5)
--- NOTE | 2019-04-09 11:05 | Diagnostic Imaging Report ---
EXAMINATION: CHEST SINGLE (PORTABLE) INDICATION: Leukocytosis COMPARISON: Chest radiograph of 01/28/2019 FINDINGS: LINES/TUBES:EKG leads overlie the chest. LUNGS:The lungs are well-inflated. No focal consolidation or pulmonary edema. PLEURA:No pleural effusion or pneumothorax. MEDIASTINUM:The cardiomediastinal silhouette appears normal in size and shape. BONES/SOFT TISSUES:No acute osseous injury. ABDOMEN:No free air under the diaphragm. IMPRESSION: No focal pneumonia or pulmonary edema. Signed by: Mirian Mendez MD on 04/09/2019 11:02 AM
--- NOTE | 2019-04-09 11:30 | Diagnostic Imaging Report ---
Examination: CT head without contrast Clinical Indication: Confusion. Technique: Transaxial noncontrast images from the skull base through the vertex were obtained. Sagittal and coronal reformatted images were done. Dose modulation, iterative reconstruction, and/or weight based adjustment of the mA/kV was utilized to reduce the radiation dose to as low as reasonably achievable. Comparison: Head CT performed October 25, 2018. Findings: Scalp: No abnormalities. Bones: Intact. No fractures. No blastic or lytic lesions. Brain sulci: Mild volume loss for patient's age. Ventricles: No hydrocephalus. Extra-axial space: No abnormalities. Parenchyma: There are patchy areas of low-attenuation within subcortical and periventricular white matter, nonspecific, but could represent microvascular ischemic disease. No masses, hemorrhage, or acute or chronic cortical based vascular insults. Suprasellar region: No abnormalities. Craniocervical junction: The foramen magnum is patent. No Chiari one malformation. Incidental findings: Atherosclerotic calcification of the cavernous and supraclinoid internal carotid arteries. Impression: 1. No new or acute intracranial abnormality when compared to prior head CT performed October 25, 2018. 2. Unchanged chronic microvascular ischemic change and volume loss. Signed by: Dr. Gaby Watters M.D. on 04/09/2019 11:27 AM
--- NOTE | 2019-04-09 11:36 | NUR ---
LAB BJ STATES BLOOD HEMOLYZED. ASKED FOR LAB REDRAW, PER BJ THE [employer] DOCK MANAGER IS, "ON THE FLOOR AND THEN SHE IS GOING TO LUNCH." NOTIFIED BJ OF LAB REDRAW STILL NEEEDS TO BE DONE STAT.
--- NOTE | 2019-04-09 11:39 | NUR ---
PT GIVEN UPDATE, PT GIVEN URINAL AND RE-ENCOURAGED TO GIVE URINE KATHY. PT STATES UNDERSTANDING.
[2019-04-09] MEDS ORDERED: SODIUM CHLORIDE 0.9% 500ML 500 ML IV STA (11:43)
--- NOTE | 2019-04-09 12:13 | NUR ---
updated pt and family and again reminded of need for urine specimen...
[2019-04-09 12:49] LABS: ALANINE AMINOTRANSFERASE 40 IU/L (0-55); ALBUMIN 4.1 g/dL (3.5-5.0); ALBUMIN/GLOBULIN RATIO 1.1 (0.8-2.0); ALKALINE PHOSPHATASE 156 IU/L (40-150); ANION GAP 14.7 mmol/L (8-16); BLOOD UREA NITROGEN 33 mg/dL (7-26); BUN/CREATININE RATIO 20 (6-25); CALCIUM 10.5 mg/dL (8.4-10.2); CARBON DIOXIDE 22 mmol/L (22-29); CHLORIDE 98 mmol/L (98-107); CREATINE KINASE 79 IU/L (30-200); CREATININE, SERUM 1.65 mg/dL (0.72-1.25); EST GLOMERULAR FILTRATION RATE 41 ML/MIN (60-); GLUCOSE 121 mg/dL (74-118); POTASSIUM 4.7 mmol/L (3.5-5.1); SODIUM 130 mmol/L (136-145)
[2019-04-09 12:53] LABS: B-TYPE NATRIURETIC PEPTIDE2 12.2 pg/mL (0-100)
[2019-04-09 13:29] LABS: CLARITY,URINE CLEAR (CLEAR); COLOR,URINE YELLOW (YELLOW)
[2019-04-09 13:30] LABS: BILIRUBIN,URINE NEGATIVE (NEGATIVE); KETONES,URINE NEGATIVE (NEGATIVE); LEUKOCYTE ESTERASE ,URINE NEGATIVE (NEGATIVE); NITRITE,URINE NEGATIVE (NEGATIVE); PROTEIN,URINE DIPSTICK NEGATIVE (NEGATIVE); URINE UROBILINOGEN 0.2 mg/dL (0.2 - 1)
[2019-04-09 13:31] LABS: AMORPHOUS SEDIMENT,URINE FEW (FEW); BACTERIA,URINE MODERATE /HPF; EPITHELIAL CELLS,URINE MODERATE /LPF; MUCUS,URINE MODERATE (RARE); RBC,URINE 0-5 /HPF (0-5)
[2019-04-09 15:20] VITALS: BP 122/89
--- NOTE | 2019-04-09 15:39 | NUR ---
PATIENT ARRIVED ON THE UNIT AT 1520 PER STRETCHER- PATIENT IS ALERT TO SELF ONLY AT THIS TIME AND IS AWARE HE IS IN THE HOSPITAL. PATIENT IS IN STABLE CONDITION WITH NO S/S OF RESPIRATORY DISTRESS. NO PAIN VOICED. TELEMETRY APPLIED. PRESENT IN ROOM. HEALED SCRATCHES/SCABS NOTED TO BILATERAL LOWER EXTREMITY. BRUISE NOTED TO LEFT BACK. BLANCHABLE REDNESS NOTED TO LEFT LATERAL GREAT TOE AND RIGHT UPPER POSTERIOR FOOT. CALL LIGHT IS WITHIN REACH, PATIENT INSTRUCTED TO CALL FOR ASSISTANCE NEEDED.
[2019-04-09 15:47] VITALS: BP 122/89
[2019-04-09 15:58] VITALS: BP 122/89
[2019-04-09] MEDS: SODIUM CHLORIDE 0.9% 1000ML 1,000 ML IV SCH (18:00)
--- NOTE | 2019-04-09 18:56 | NUR ---
PATIENT IN STABLE CONDITION WITH NO S/S OF RESPIRATORY DISTRESS- NO PAIN VOICED. IV FLUIDS INFUSING. BED ALARM ON. CALL LIGHT IS WITHIN REACH, PATIENT INSTRUCTED TO CALL FOR ASSISTANCE NEEDED. REPORT GIVEN TO ONCOMING NURSE.
[2019-04-09 19:40] VITALS: BP 111/83
[2019-04-09 21:23] VITALS: BP 111/83
[2019-04-10] VITALS (8 sets, daily range): BP systolic 113–153; BP diastolic 70–89
[2019-04-10] MEDS: SODIUM CHLORIDE 0.9% 1000ML 1,000 ML IV SCH ×2 (04:14→13:21)
[2019-04-10] MEDS: APIXABAN 5 MG TABLET PO SCH (08:20)
[2019-04-10] MEDS: AZILSARTAN PO SCH (08:20)
[2019-04-10] MEDS: FLUOXETINE HCL 20 MG CAP PO SCH (08:20)
[2019-04-10] MEDS: CHLORTHALIDONE PO SCH (08:20)
[2019-04-10] MEDS: ALLOPURINOL 300 MG TAB PO SCH (08:20)
[2019-04-10] MEDS ORDERED: NON-FORMULARY MEDICATION ([Eliquis] 5 MG) PO SCH (09:00)
--- NOTE | 2019-04-10 09:46 | History and Physical ---
HISTORY OF PRESENT ILLNESS: The patient is a 68-year-old male, comes in with confusion, apparent abnormal lab work from Dr. Engel, his primary care physician. The patient is currently stable. No chest pain. No shortness of breath. Apparent confusion was noted by family at home and the patient has been feeling poorly for the last couple of days and was brought into the office 2 days ago and had labs done. The labs were apparently abnormal and kidneys showed deterioration in dehydration and elevated blood count and the patient was sent to the ER for further evaluation. PAST MEDICAL HISTORY: History of hypertension, history of gouty arthritis, history of depression, history of dementia, and also history of taking anticoagulants. The patient additional history includes dementia. The patient also has history of reflux esophagitis. PAST SURGICAL HISTORY: History of cholecystectomy and also history of prostate surgery and hiatal hernia surgery. MEDICATIONS: He takes at home allopurinol 300 mg daily, mg daily, fluoxetine 20 mg daily, Eliquis 5 mg daily. ALLERGIES: NO KNOWN ALLERGIES NOTED. SOCIAL HISTORY: Unable to get, but according to the patient, no EtOH, no IV drug abuse, and no history of smoking either. FAMILY HISTORY: Noncontributory. REVIEW OF SYSTEMS: Negative for chest pain. No shortness of breath. No nausea. No vomiting. No diarrhea. No constipation. No rectal bleeding. No hematochezia. No hematemesis. No fever. No chills. No other symptoms noted. PHYSICAL EXAMINATION: VITAL SIGNS: Temperature is 96.9, pulse of 78, respirations 17, blood pressure is 123/88, pulse oximetry of 98%. HEENT: Normocephalic, atraumatic. Pupils are reactive to light and accommodation. CVS: S1 and S2 normal. Regular rate and rhythm. ABDOMEN: Nontender, nondistended. EXTREMITIES: No clubbing, no cyanosis, no edema. SKIN: Normal integumentary system. NEUROLOGIC: Alert and oriented x3. No motor deficits. No sensory deficit. Reflexes are normal. Memory lapse noted. LABORATORY VALUES: White count is 14,000, hemoglobin of 15.2, hematocrit 45.2, neutrophil count 8.4. Coags were normal. Chemistry shows sodium of 130, potassium of 4.7, BUN of 33, creatinine of 1.65. Lactic acid was 1.5. The patient was seen in the ED, bolus of fluid was given. IMAGING STUDIES: Brain CT was essentially normal, unchanged except for microvascular changes and volume loss. Chest x-ray was no focal pneumonia or pulmonary edema. ASSESSMENT: 1. Questionable sepsis. 2. Hypertension. 3. Acute kidney injury. 4. Hyperlipidemia. 5. Dementia. 6. Elevated white count. The patient's urine culture and blood cultures are pending. PLAN: Continue with fluid resuscitation. Monitoring his blood pressures on a regular basis. Continue with regular diet and await microbiological studies including a blood culture and urine culture before starting IV antibiotics. Further recommendation per clinical course. We will continue to monitor the patient. MD SHAHRAM Felder/MODL /[id number]
--- NOTE | 2019-04-10 13:35 | NUR ---
Nutrition Screen Note RD Recommendation for Physician: Continue diet as ordered Plan of Care: RD following, monitoring for tolerance and adequacy Nutrition reason for involvement: Nutrition Risk Trigger - MST Primary Diagnose(s):Renal insufficiency, weakness PMH: Gout dementia, cholecystectomy, reflux esophagitis, HTN, ADELINA, Sepsis Ht: 68in Wt:167lb BMI:25.4 kg/m2 IBW:154lb +/-10% RD Assessment: (04/10/2019) Chart reviewed. Labs and meds reviewed. inital encounter with patient today. Diet Hx: pt has no known food allergies. Pt is eating well and denies any chewing, swallowing, nausea, vomiting or diarrhea. Wt has been stable Current Diet: Cardiac Malnutrition Evaluation (04/10/2019) The patient does not meet criteria for a specified degree of malnutrition at this time. Will re-evaluate at follow-up as appropriate. Diet Education Needs Assessment: Diet education not indicated. Nutrition Care Level: Low Signed: Khadar Paz RD, LD, [facility]
[2019-04-10] MEDS: LOSARTAN POTASSIUM 100 MG TAB PO SCH (16:23)
[2019-04-11] VITALS (7 sets, daily range): BP systolic 111–150; BP diastolic 71–94
[2019-04-11 06:21] LABS: BASOPHILS % 0.4 % (0.0-1.0); EOSINOPHILS # (AUTO) 0.1 (0.0-0.4); EOSINOPHILS % 0.8 % (0.0-6.0); HEMOGLOBIN 13.8 g/dL (14.0-18.0); LYMPHOCYTES # (AUTO) 2.7 (1.0-3.2); LYMPHOCYTES % 25.8 % (18.0-39.1); MEAN CORPUSCULAR HEMOGLOBIN 32.3 pg (28-32); MEAN CORPUSCULAR HGB CONC 32.9 g/dL (31-35); MEAN CORPUSCULAR VOLUME 98.4 fL (81-99); MONOCYTES # (AUTO) 0.9 (0.2-0.8); MONOCYTES % 8.9 % (4.4-11.3); NEUTROPHILS # (AUTO) 6.8 (2.1-6.9); NEUTROPHILS % 63.5 % (38.7-80.0); PLATELET COUNT 254 x10e3/uL (140-360); RED BLOOD COUNT 4.27 x10e6/uL (4.3-5.7); RED CELL DISTRIBUTION WIDTH 13.9 % (11.7-14.4)
[2019-04-11] MEDS: SODIUM CHLORIDE 0.9% 1000ML 1,000 ML IV SCH (06:26)
[2019-04-11 06:45] LABS: ANION GAP 13.5 mmol/L (8-16); BLOOD UREA NITROGEN 18 mg/dL (7-26); BUN/CREATININE RATIO 15 (6-25); CALCIUM 10.5 mg/dL (8.4-10.2); CARBON DIOXIDE 27 mmol/L (22-29); CHLORIDE 101 mmol/L (98-107); CREATININE, SERUM 1.18 mg/dL (0.72-1.25); EST GLOMERULAR FILTRATION RATE > 60 ML/MIN (60-); GLUCOSE 101 mg/dL (74-118); POTASSIUM 4.5 mmol/L (3.5-5.1); SODIUM 137 mmol/L (136-145)
--- NOTE | 2019-04-11 07:00 | NUR ---
RECEIVED PATIENT AWAKE RESTING IN BED NO S/S OF DISTRESS. BED LOW, WHEELS LOCKED, SIDE RAILS X2. CALL LIGHT IN REACH WILL CONTINUE TO MONITOR PATIENT.
[2019-04-11] MEDS: AZILSARTAN PO SCH (08:49)
[2019-04-11] MEDS: CHLORTHALIDONE PO SCH (08:49)
[2019-04-11] MEDS: FLUOXETINE HCL 20 MG CAP PO SCH (09:00)
[2019-04-11] MEDS: ALLOPURINOL 300 MG TAB PO SCH (09:00)
[2019-04-11] MEDS: LOSARTAN POTASSIUM 100 MG TAB PO SCH (09:00)
[2019-04-11] MEDS: APIXABAN 5 MG TABLET PO SCH (09:00)
--- NOTE | 2019-04-11 09:26 | Progress Note ---
DATE: SUBJECTIVE: The patient is a 68-year-old male, who comes in with dehydration, sepsis, hypertension, acute kidney injury, and elevated white count. The patient is currently feeling better. Still complains of some abdominal pain, otherwise stable. OBJECTIVE: VITAL SIGNS: Today, temperature is 98.3, pulse of 78, respirations of 18, blood pressure is 133/80, and pulse oximetry of 97%. HEENT: Normocephalic and atraumatic. Pupils reactive to light and accommodation. CVS: S1 and S2 normal. Regular rate and rhythm. ABDOMEN: Nontender, nondistended. EXTREMITIES: No clubbing, no cyanosis, no edema. LABORATORY DATA: The patient's white count has come down to 10.6, hemoglobin of 13.8, and hematocrit of 42.0. Chemistry; sodium of 137 improved, potassium 4.5, BUN of 18, creatinine of 1.18, and calcium is 10.5. Lactic acid was normal. MICROBIOLOGY: Urine cultures, preliminary no growth. Blood cultures, no growth after 24 hours. MEDICATIONS: Currently, 1. Sodium chloride. 2. Losartan 50 mg. 3. Apixaban 5 mg twice a day. 4. Fluoxetine. 5. Allopurinol. At this time, the patient continues to be watched. ASSESSMENT: 1. Acute dehydration. 2. Acute kidney injury. 3. Leukocytosis. 4. Dementia. 5. History of deep venous thrombosis. PLAN: Continue to monitor the patient. Fluids will be cut down to 50 mL an hour. We will monitor the patient. Check labs again tomorrow and further recommendation per clinical course. MD SHAHRAM Felder/MODL /[id number]
--- NOTE | 2019-04-11 10:15 | NUR ---
PATIENT A/O X3, EVEN RESPIRATIONS ON RA. LUNG SOUNDS CLEAR TO AUSCULTATION. BOWEL SOUNDS PRESENT. NO PAIN AT THIS TIME. PATIENT AMBULATES WITH STANDBY ASSISTANCE. RIGHT HAND 22 GAUGE IV WITH NS @ 50 CC/HR. TELEMETRY #8 SR. CALL LIGHT IN REACH WILL CONTINUE TO MONITOR PATIENT.
[2019-04-12] VITALS (10 sets, daily range): BP systolic 118–153; BP diastolic 65–91
[2019-04-12] MEDS: SODIUM CHLORIDE 0.9% 1000ML 1,000 ML IV SCH ×2 (00:26→15:07)
[2019-04-12] MEDS: CEFTRIAXONE SOD 1 GM/NS 50 ML 50 ML IV SCH (05:25)
[2019-04-12] MEDS: AZILSARTAN PO SCH (09:00)
[2019-04-12] MEDS: CHLORTHALIDONE PO SCH (09:00)
[2019-04-12] MEDS: APIXABAN 5 MG TABLET PO SCH (09:28)
[2019-04-12] MEDS: LOSARTAN POTASSIUM 100 MG TAB PO SCH (09:28)
[2019-04-12] MEDS: ALLOPURINOL 300 MG TAB PO SCH (09:28)
[2019-04-12] MEDS: FLUOXETINE HCL 20 MG CAP PO SCH (09:28)
--- NOTE | 2019-04-12 13:06 | NUR ---
WOUND CARE CONSULT FOR 68 YO MALE HX OF WEAKNESS ,RENAL INSUFF LUIS 19 ON CONSERVATIVE PUP TOTAL SKIN ASSESSMENT DONE PATIENT PRESENTS WITH SMALL HEALING ABRASION TO RIGHT INNER ANKLE 2CM X2CM 0 DEPTH AREA HEALING WELL NO SIGNS OF INFECTION WITH HEALTHY CLARE SKIN PATIENT IS INDEPENDENT IN TURNING AND GETTING UP FROM BED AND AMBULATION THERE IS NO RECOMMENDATION FOR TOPICAL TREATMENT AT THIS TIME JUST PROTECT KEEP AREA CLEAN AND DRY Addendum: 04/12/19 at 1314 by Dru Polo RN Amended: Links added.
--- NOTE | 2019-04-12 13:13 | NUR ---
EDUCATED ABOUT IMM, SIGNED, FILED IN CHART, WITH COPY LEFT WITH FAMILY AT BEDSIDE.
--- NOTE | 2019-04-12 16:00 | NUR ---
Per Shahzad YATES patient cleared to discharge.
[2019-04-12] MEDS ORDERED: OLANZAPINE 5 MG TAB PO PRN (16:45)
--- NOTE | 2019-04-12 18:36 | NUR ---
Resting in bed, side rails upx2, call light within reach, bed alarm on. AAOX3 to time, person, place.. Respirations even and unlabored. Denies pain. Report to be given to oncoming nurse of patient's status.
--- NOTE | 2019-04-12 19:15 | NUR ---
Completed rounding with morning nurse. Pt alert and orient to name. Pt lying in bed HOB 75 degrees. Denies pain at this time. Will continue to monitor.
[2019-04-12] MEDS ORDERED: OLANZAPINE 5 MG TAB PO SCH (21:00)
--- NOTE | 2019-04-12 21:18 | Consultation ---
DATE OF CONSULTATION: 04/12/2019 Psychiatric Consultation The patient evaluated and events noted. REASON FOR CONSULTATION: To evaluate the patient's psychosis and dementia. HISTORY OF PRESENT ILLNESS: The patient is a 68-year-old male, admitted to the hospital for renal insufficiency. Psych is consulted for dementia and psychosis. As per the medical record, the patient has history of hypertension, gouty arthritis, depression, dementia, and reflux. He came to the hospital with confusion and abnormal lab work from his PCP. Upon evaluation today, the patient is found to be lying in the bed with the in the room. He is alert, awake, and oriented to self, place, and year. He is able to answer questions meaningfully. He agrees with the to be present during assessment. The patient claims he is hospitalized due to problem with his throat and problem with some sort of stenosis by problem in his throat. The patient denies depression or anxiety. Denies any hallucination. Denies any hopelessness or helplessness feeling. Denies any suicidal ideation. He admits that his appetite has been poor at times. Denies any problem with sleep. The patient agrees for me to talk to his . According to the , the patient has been diagnosed with dementia over the last 4 or 5 months, however, she noticed his confusion started a year ago. The patient's father has dementia. She reports the patient has lost 17 pounds over the last 3 weeks. He has been on Marinol to help his appetite. claims that the patient has been telling [facility] heard that he has something in his throat. All the lab results have been negative for any obstruction. She claims that the patient does not get out of his recliner at home. He sits there for 22 hours in a day. He does not at home. He has no interest in activities of daily living. He would be ignoring his grand kids. Even the car that has been recently purchased, he does not show any interest in to look at it. He is relatively aggressive and . He at times accuses her of not caring about him. He states things that are not true, for example he claims that they have 2 pet rabbits that murdered, but in fact they have only 1. She claims that he has been taking Prozac to help with his mood that she has not noticed any changes in the medication and in his mood. is very concerned and wants some medication that would help with his appetite, the paranoia, and also his relative aggression. PAST PSYCHIATRIC HISTORY: The patient has been diagnosed with dementia over the last 4 or 5 months. Denies suicide attempts. Claims he drinks alcohol 1 day in a week. Denies any drug use. FAMILY HISTORY: The patient's father has dementia. SOCIAL HISTORY: The patient lives with . MENTAL STATUS EXAM: The patient is elderly male, who is alert, awake, and oriented to self, place, time, and year. He depression or anxiety. He denies any suicidal or homicidal ideation. His affect is congruent with his mood. His mood is irritable and defensive. He is delusional about his medical condition. His insight and judgment are fair. Memory appears to be grossly intact. CURRENT MEDICATIONS: 1. Sodium chloride. 2. Losartan. 3. Eliquis. 4. Prozac 40 mg p.o. daily. 5. Allopurinol. 6. Ceftriaxone. Home medications, azilsartan/chlorthalidone. CURRENT LABS: WBC 10.62, RBC 4.27, hemoglobin 13.8, hematocrit 42.0, and platelets 254. Sodium 137, potassium 4.5, chloride 101, CO2 of 27, BUN 18, and creatinine 1.18. AST 20 and ALT 40. ASSESSMENT: 1. Unspecified psychosis. 2. Unspecified dementia with behavior disturbances. PLAN: 1. To continue Prozac 40 mg p.o. daily. 2. Add Zyprexa 2.5 mg p.o. at bedtime. 3. Add Zyprexa 2.5 mg p.o. q.6 hours p.r.n. 4. Discussed with nursing staff. 5. Discussed at length with family members. 6. Recommend follow with outpatient psychiatry and address and phone numbers of the clinic provided to the . 7. Monitor for mood, appetite, and delusions. Thank you for this consultation. Dictated by Sherrill Pike PA-C Susie Manzo MD QTV/MODL /[id number]
[2019-04-13 00:38] VITALS: BP 142/88
[2019-04-13] MEDS: CEFTRIAXONE SOD 1 GM/NS 50 ML 50 ML IV SCH (04:49)
[2019-04-13 05:53] VITALS: BP 143/92
--- NOTE | 2019-04-13 06:01 | NUR ---
Tele D/C per physician order. Pt is NSR.
[2019-04-13 07:29] VITALS: BP 127/81
[2019-04-13 08:00] VITALS: BP 127/81
[2019-04-13] MEDS: AZILSARTAN PO SCH (08:08)
[2019-04-13] MEDS: CHLORTHALIDONE PO SCH (08:08)
[2019-04-13] MEDS: APIXABAN 5 MG TABLET PO SCH (08:13)
[2019-04-13] MEDS: ALLOPURINOL 300 MG TAB PO SCH (08:13)
[2019-04-13] MEDS: FLUOXETINE HCL 20 MG CAP PO SCH (08:13)
[2019-04-13] MEDS: LOSARTAN POTASSIUM 100 MG TAB PO SCH (08:13)
[2019-04-13] MEDS: SODIUM CHLORIDE 0.9% 1000ML 1,000 ML IV SCH (11:40)
[2019-04-13 11:44] VITALS: BP 153/91
[2019-04-13] MEDS ORDERED: ZYPREXA2.5 MG PO (13:18)
--- NOTE | 2019-04-13 14:08 | NUR ---
Right wrist IV discontinued. No signs of infiltration noted. 2x2 gauze and tape placed. Taken via wheelchair to personal car. Accompanied by . AAOx3 to time, person, place. Respirations even and unlabored. Denies pain. Discharge instructions, rx, and all personal belongings taken with patient.
--- NOTE | 2019-04-14 06:37 | Discharge Summary ---
DISCHARGE DIAGNOSES: 1. Dementia with behavioral disturbance. 2. Acute renal failure secondary to dehydration. 3. Hypertension. HISTORY OF PRESENT ILLNESS AND HOSPITAL COURSE: See hospital chart for full details. The patient is a gentleman, who has been having increasing behavioral disturbance at home secondary to his recently diagnosed dementia. He has also had some decreased p.o. intake to the point he actually started having evidence of acute renal failure secondary to dehydration, so he was admitted, placed on IV fluids, which made resolution of his dehydration and acute renal failure. He was seen by Psychiatry, who changed some of his medicines, where they have added Zyprexa, which seemed to help. The patient had a discussion with , who felt like it was helping, so she wanted to take him home and continue with the medication and she will call up in about 2 weeks with me. Please see hospital chart for full details. MD TOMER Drake/CARLOS /[id number]
--- NOTE | 2019-04-14 09:58 | Progress Note ---
DATE: 04/13/2019 Psychiatric Progress Note SUBJECTIVE: The patient evaluated and events noted. The patient is in the room. He is calm and cooperative. He states he is doing well. He denies anxiety or depression. He reports sleeping well. He claims he ate his breakfast and lunch. He denies any side effects with medication. He denies any hallucination. As per nursing staff, the patient's appetite has improved. He ate all his meal today. He is due to be discharged today. ASSESSMENT: 1. Unspecified psychosis. 2. Unspecified dementia with behavior disturbances. PLAN: 1. Continue with Zyprexa and Prozac. 2. Recommend followup with outpatient Psychiatry. 3. Supportive therapy. Dictated by Sherrill Pike PA-C Susie Manzo MD QTV/MODL /[id number]
== END 2019-04-13 14:14 | disposition home or self-care (01) | DRG 872 ==
LOC: ER 10:03 → ERHOLD 13:11 → MED/SURG2 15:16
PROVIDERS: ADMIT Internal Medicine; ATTEND Internal Medicine
DX: A41.9 Sepsis, unspecified organism (principal); N17.9 Acute kidney failure, unspecified; F03.91 Unspecified dementia, unspecified severity, with behavioral disturbance; N39.0 Urinary tract infection, site not specified; I10 Essential (primary) hypertension; E78.5 Hyperlipidemia, unspecified; F29 Unspecified psychosis not due to a substance or known physiological condition; E86.0 Dehydration; Z86.718 Personal history of other venous thrombosis and embolism; D64.9 Anemia, unspecified; M10.9 Gout, unspecified
CPT/HCPCS: 36415; 70450; 71045; 80048; 80053; 81001; 82550; 82553; 82948; 83605; 83880; 84484; 85025; 85610; 85730; 87040; 87086; 93005; 99284; J0696; J7030; J7040